=== PATIENT | male | born 1965 | race Caucasian/White ===

== ENCOUNTER 2021-11-12 18:35 | Emergency (ER) | payer OTHER ==
[~2021-11-12] VITALS: Ht 167.6 cm; Wt 63.0 kg
[2021-11-12 20:36] LABS: BASOPHILS % 0.7 % (0.0-2.0); EOSINOPHILS % 1.5 % (0.0-5.0); HEMATOCRIT. 45.7 % (42.0-52.0); HEMOGLOBIN. 15.3 g/dL (14.0-18.0); LYMPHOCYTES % 23.8 % (20.0-50.0); MEAN CORPUSCULAR HEMOGLOBIN 30.9 pg (28.0-32.0); MEAN CORPUSCULAR VOLUME 92.1 fL (80.0-94.0); MEAN PLATELET VOLUME 8.3 fl (7.4-10.4); MONOCYTES % 6.2 % (2.0-8.0); NEUTROPHILS % 67.8 % (40.0-76.0); PLATELET 257 x1000/uL (130-400); RED BLOOD CELL COUNT 4.97 mill/uL (4.7-6.1); RED CELL DISTRIBUTION WIDTH 14.2 % (11.6-14.6)
[2021-11-12 20:43] LABS: CHLORIDE 111 mEq/L (98-107)
[2021-11-12 21:07] LABS: ETHANOL BLOOD 336 mg/dL
[2021-11-12] MEDS ORDERED: IOHEXOL-350 100 ML BOTTLE ONE (21:53)
[2021-11-13 00:03] VITALS: BP 118/72
== END 2021-11-13 00:43 ==
LOC: ER 18:35
DX: F10.229 Alcohol dependence with intoxication, unspecified (principal); I77.819 Aortic ectasia, unspecified site; R09.02 Hypoxemia; J98.11 Atelectasis; Y90.8 Blood alcohol level of 240 mg/100 ml or more; T14.90XA Injury, unspecified, initial encounter; V49.40XA Driver injured in collision with unspecified motor vehicles in traffic accident, initial encounter; Y93.89 Activity, other specified; Y92.488 Other paved roadways as the place of occurrence of the external cause; Z71.41 Alcohol abuse counseling and surveillance of alcoholic; Z87.81 Personal history of (healed) traumatic fracture
CPT/HCPCS: 36415; 70450; 71045; 71275; 80048; 80320; 85025; 93005; 99285; Q9967; G0480